=== PATIENT | female | born 1990 | race American Indian/Alaskan Native ===

== ENCOUNTER 2023-01-14 15:55 | Inpatient (IN) | payer MEDICAID ==
[~2023-01-14] VITALS: Ht 160 cm; Wt 72.6 kg
[2023-01-14] MEDS ORDERED: PHISODERM TOP SOLN 240ML BTL TOP PRN (16:30)
[2023-01-14] MEDS ORDERED: LIDOCAINE 2%HCL (LOCAL ANESTH.) INJ 20ML MDV IJ PRN (16:30)
[2023-01-14] MEDS ORDERED: miSOPROStol 50 MCG per PRE-CUT 1/2 TAB PO PRN (16:30)
[2023-01-14] MEDS ORDERED: DERMOPLAST 60ML BOTTLE TOP PRN (16:30)
[2023-01-14] MEDS ORDERED: WITCH HAZEL-GLYCERIN PAD TOP PRN (16:30)
[2023-01-14] MEDS ORDERED: PENICILLIN G POT 5MIL/D5 50ML 50 ML IV ONE (16:30)
[2023-01-14] MEDS ORDERED: PROMETHAZINE HCL 25 MG/ML 1ML IV PRN (16:30)
[2023-01-14 16:49] LABS: Fern Testing Positive
[2023-01-14 17:23] LABS: Basophils # (auto) 0 10 ^3/uL (0-0.2); Basophils % (auto) 0.2 % (0.0-2.0); Eosinophils # (auto) 0.2 10 ^3/uL (0-0.8); Eosinophils % (auto) 1.4 % (0.0-7.0); Hematocrit 37.5 % (36.0-46.0); Hemoglobin 12.5 g/dL (12.2-16.2); Lymphocytes # (auto) 1.7 10 ^3/uL (0.4-5.4); Mean Corpuscular Hemoglobin 30.8 pg (28.0-32.0); Mean Corpuscular Hgb Conc. 33.3 g/dL (32.0-36.0); Mean Corpuscular Volume 92.6 fL (80.0-100.0); Monocytes # (auto) 0.7 10 ^3/uL (0-1.3); Monocytes % (auto) 5.5 % (0.0-12.0); Neutrophils # (auto) 10.4 10 ^3/uL (1.6-8.6); Neutrophils % (auto) 79.9 % (37.0-80.0); Nucleated Red Blood Cells % 0.2 %; Red Blood Cells 4.05 10^6/uL (4.0-5.20); Red Cell Distribution Width 13.6 % (11.8-14.3)
[2023-01-14 17:32] LABS: Urine Bacteria FEW /hpf (None Seen); Urine Blood Negative /uL (Negative); Urine Clarity HAZY (Clear); Urine Color Yellow (Yellow); Urine Protein, UAD 1+ (Negative); Urine Specific Gravity 1.017 (1.001-1.035); Urine Urobilinogen Normal (Negative); Urine WBC 7 /hpf (0 - 5)
[2023-01-14 17:41] LABS: Amphetamine Screen, Urine Neg (NEGATIVE); Barbiturate Scree,Urine Neg (NEGATIVE); Benzodiazephine Screen, Urine Neg (NEGATIVE); Cocaine Screen, Urine Neg (NEGATIVE)
[2023-01-14 17:41] LABS: Alanine Aminotransferase 30 U/L (7-40); Albumin 3.8 g/dL (3.2-4.8); Alkaline Phosphatase 190 U/L (46-116); Anion Gap 10 (5-15); Aspartate Aminotransferase 24 U/L (13-40); BUN/Creatinine Ratio 11.3 (10.0-20.0); Bilirubin, Total 0.3 mg/dL (0.2-1.0); Blood Urea Nitrogen 7 mg/dL (9-23); Calcium 8.9 mg/dL (8.5-10.1); Carbon Dioxide 21 mmol/L (20-30); Chloride 107 mmol/L (98-107); Glucose 100 mg/dL (74-106); Potassium 3.8 mmol/L (3.5-5.1); Sodium 138 mmol/L (136-145); Total Protein 6.5 g/dL (5.7-8.2)
[2023-01-14 17:42] LABS: Cannabinoid Screen, Urine Neg (NEGATIVE); Opiate Scree,Urine Neg (NEGATIVE); Phencyclidine Screen, Urine Neg (NEGATIVE)
[2023-01-14 17:44] LABS: INR 0.92 (0.9-1.15); Partial Thromboplastin Time 27.5 SEC (24.5-34.5); Prothrombin Time 9.7 sec (9.3-11.8)
[2023-01-14] MEDS: VANCOMYCIN 1GM/250ML 250 ML IV SCH ×2 (18:00→18:35)
[2023-01-14] MEDS: LACTATED RINGER'S 1,000 ML IV SCH (18:52)
[2023-01-14] MEDS ORDERED: diphenhdrAMINE HCL 50 MG/1 ML VL ONE (19:33)
[2023-01-14] MEDS ORDERED: diphenhdrAMINE HCL 50 MG/1 ML VL IV ONE (19:45)
[2023-01-14] MEDS ORDERED: methylPREDNISolone SOD SUCC 125 MG/2 ML VL IV ONE (19:45)
[2023-01-14] MEDS ORDERED: methylPREDNISolone SOD SUCC 125 MG/2 ML VL ONE (19:47)
[2023-01-14] MEDS ORDERED: ONDANSETRON HCL 4 MG/2 ML VIAL ONE (19:55)
[2023-01-14] MEDS ORDERED: PENICILLIN G POTASSIUM 2,500,000 UNITS in D5W 5% 50 ML IV SCH (20:30)
[2023-01-14 21:29] LABS: COVID19 ANTIGEN SOFIA FIA NEGATIVE (NEGATIVE)
[2023-01-14] MEDS ORDERED: miSOPROStol 100 mcg TAB SL PRN (23:30)
[2023-01-14] MEDS ORDERED: LACT. RINGERS/OXYTOCIN 20UNITS 500 ML IV ONE (23:30)
[2023-01-14] MEDS ORDERED: miSOPROStol 100 mcg TAB PR PRN (23:30)
[2023-01-14] MEDS ORDERED: TERBUTALINE SULFATE 1 MG/ML 1ML VIAL SC PRN (23:30)
[2023-01-14] MEDS ORDERED: LACT. RINGERS/OXYTOCIN 20UNITS 1,000 ML IV SCH (23:30)
[2023-01-14] MEDS ORDERED: METHYLERGONOVINE MALEATE 0.2 MG/ML AMP IM PRN (23:30)
[2023-01-14] MEDS ORDERED: CARBOPROST TROMETHAMINE 250 MCG/1ML VIAL IM PRN (23:30)
[2023-01-15] MEDS ORDERED: LACT. RINGERS/OXYTOCIN 20UNITS 500 ML IV ONE
[2023-01-15] MEDS ORDERED: LACTATED RINGER'S 1,000 ML IV ONE (00:30)
[2023-01-15] MEDS ORDERED: LIDOCAINE HCL 2 %PF INJ 10ML AMP IJ ONE (00:30)
[2023-01-15] MEDS ORDERED: NALOXONE HCL 0.4 MG/ML VIAL IV ONE (00:30)
[2023-01-15] MEDS ORDERED: ROPIVACAINE HCL 200 ML EPI SCH (00:30)
[2023-01-15] MEDS ORDERED: fentaNYL CITRATE 100 MCG/2 ML VL IV ONE (00:30)
[2023-01-15] MEDS ORDERED: ePHEDrine SULFATE 50 MG/ML AMP IV ONE (00:30)
[2023-01-15] MEDS ORDERED: ROPIVACAINE HCL 100 ML ONE (00:34)
[2023-01-15] MEDS ORDERED: FAMOTIDINE (10MG/ML) 2ML VL IV PRN (02:00)
[2023-01-15] MEDS: LACTATED RINGER'S 1,000 ML IV SCH ×2 (02:28→08:12)
[2023-01-15] MEDS ORDERED: CLINDAMYCIN 900MG IV 50 ML IV SCH (09:00)
[2023-01-15] MEDS ORDERED: VANCOMYCIN 1GM/250ML 250 ML IV SCH (10:00)
[2023-01-15] MEDS ORDERED: ONDANSETRON ODT 4 MG TAB PO PRN (11:00)
[2023-01-15] MEDS ORDERED: LIDOCAINE 2%HCL (LOCAL ANESTH.) INJ 10ml MDV ONE (11:14)
[2023-01-15] MEDS ORDERED: LIDOCAINE 2%HCL (LOCAL ANESTH.) INJ 20ML MDV ONE (11:15)
[2023-01-15] MEDS ORDERED: IBUPROFEN 600 MG TAB PO PRN (12:45)
[2023-01-15] MEDS: ACETAMINOPHEN 325 MG TAB PO PRN (17:04)
[2023-01-15 19:00] VITALS: BP 105/62; PULSE 70; RESP 16; TEMP 98.9; O2SAT 97
[2023-01-15] MEDS ORDERED: DOCUSATE SOD 100 MG CAP PO SCH (22:00)
[2023-01-15 23:00] VITALS: BP 126/74; PULSE 70; RESP 16; TEMP 97.8; O2SAT 97
[2023-01-16 03:00] VITALS: BP 98/65; PULSE 60; RESP 16; TEMP 97.9; O2SAT 98
[2023-01-16 07:00] VITALS: BP 111/76; PULSE 80; RESP 17; TEMP 98.1; O2SAT 97
[2023-01-16] MEDS: ACETAMINOPHEN 325 MG TAB PO PRN (08:07)
[2023-01-16 11:00] VITALS: BP 119/77; PULSE 66; RESP 16; TEMP 98.3; O2SAT 97
[2023-01-17 19:06] LABS: Treponema pallidum Ab (FTA-Ab) Non Reactive (Non Reactive)
[2023-01-18 02:08] LABS: Rubella Antibodies, IgG 2.85 index (Immune >0.99)
[2023-01-18 12:06] LABS: RPR Non Reactive (Non Reactive)
== END 2023-01-16 13:00 | disposition home or self-care (01) | DRG 560 ==
LOC: LDRP 15:55 → UNDOADMOB 15:55 → OBSVTOIN 16:20 → INTOOBSV 16:20 → LDRP 16:32 → OBSVTOIN 16:32 → LDRP 16:33
PROVIDERS: ADMIT Obstetrics & Gynecology; ATTEND Obstetrics & Gynecology
PROC: 3E02329 Introduction of Other Anti-infective into Muscle, Percutaneous Approach (ICD-10-PCS; 2023-01-14)
PROC: 3E0P7VZ Introduction of Hormone into Female Reproductive, Via Natural or Artificial Opening (ICD-10-PCS; 2023-01-14)
PROC: 10D07Z6 Extraction of Products of Conception, Vacuum, Via Natural or Artificial Opening (ICD-10-PCS; principal; 2023-01-15)
PROC: 0KQM0ZZ Repair Perineum Muscle, Open Approach (ICD-10-PCS; 2023-01-15)
PROC: 3E0R3BZ Introduction of Anesthetic Agent into Spinal Canal, Percutaneous Approach (ICD-10-PCS; 2023-01-15)
DX: O69.81X0 Labor and delivery complicated by cord around neck, without compression, not applicable or unspecified (principal); Z37.0 Single live birth; O42.92 Full-term premature rupture of membranes, unspecified as to length of time between rupture and onset of labor; O70.1 Second degree perineal laceration during delivery; Z3A.37 37 weeks gestation of pregnancy; Z88.0 Allergy status to penicillin
CPT/HCPCS: 36415; 59025; 59409; 62282; 76805; 80053; 80307; 81001; 81002; 84112; 85025; 85610; 85730; 86592; 86703; 86762; 86850; 86900; 86901; 87340; 87426; 94760; 94762; 96360; 96361; 96365; 96366; 96372; 96374; 96375; G0378; J2001; J2405; J2590; J3490